=== PATIENT | female | born 1940 | race Asian ===

== ENCOUNTER 2017-04-01 04:55 | Inpatient (IN) | payer MEDICARE, OTHER ==
[2017-04-01] MEDS ORDERED: SOD CHLORIDE 0.9% 1,000 ML IV (05:05)
[2017-04-01 06:58] LABS: WHITE BLOOD COUNT 3.7 10^3/ul (4.8-10.8)
[2017-04-01 06:58] LABS: ABNORMAL IP MESSAGE 1; HEMATOCRIT 21.9 % (37.0-47.0); HEMOGLOBIN 7.4 g/dl (12.0-16.0); MEAN CORPUSCULAR HEMOGLOBIN 29.5 pg (29.0-33.0); MEAN CORPUSCULAR HGB CONC 33.8 g/dl (32.0-37.0); MEAN CORPUSCULAR VOLUME 87.3 fl (82.0-101.0); RED BLOOD COUNT 2.51 10^6/ul (4.20-5.40); RED CELL DISTRIBUTION WIDTH 13.8 % (11.5-14.5)
[2017-04-01 07:13] LABS: ALANINE AMINOTRANSFERASE 24 IU/L (13-69); ALBUMIN 2.8 g/dl (3.3-4.9); ALBUMIN/GLOBULIN RATIO 0.96; ALKALINE PHOSPHATASE 102 IU/L (42-121); ANION GAP 16 (8-16); ASPARTATE AMINO TRANSFERASE 28 IU/L (15-46); BLOOD UREA NITROGEN 39 mg/dl (7-20); CALCIUM 8.9 mg/dl (8.4-10.2); CARBON DIOXIDE 20 mmol/L (21-31); CHLORIDE 93 mmol/L (97-110); CREATININE 0.54 mg/dl (0.44-1.00); GLUCOSE 144 mg/dl (70-220); LIPASE 22 U/L (23-300); POTASSIUM 4.9 mmol/L (3.5-5.1); SODIUM 124 mmol/L (135-144); TOTAL PROTEIN 5.7 g/dl (6.1-8.1)
[2017-04-01 07:15] LABS: ADD MAN DIFF? YES; MEAN PLATELET VOLUME 11.3 fl (7.4-10.4); PLATELET COUNT 65 10^3/UL (140-415); POSITIVE DIFF @See below
[2017-04-01 07:31] LABS: INR 0.94; PARTIAL THROMBOPLASTIN TIME 21.4 Sec (25.0-35.0); PROTIME 12.7 Sec (11.9-14.9)
[2017-04-01 07:32] LABS: TROPONIN-I < 0.012 ng/ml (0.00-0.12)
[2017-04-01] MEDS: OCTREOTIDE 50 MCG in SOD CHLORIDE 0.9% 25 ML IVPB (09:01)
[2017-04-01] MEDS: PANTOPRAZOLE IV 80 MG in SOD CHLORIDE 0.9% 100 ML IVPB (09:02)
[2017-04-01] MEDS: ONDANSETRON INJ 8 MG in DEXTROSE 5% 50 ML IVPB (09:05)
[2017-04-01] MEDS: SODIUM CHLORIDE 0.9% 1L BAG IV* ×2 (09:05→18:18)
[2017-04-01] MEDS: OCTREOTIDE 500 MCG in SOD CHLORIDE 0.9% 49 ML IV (09:26)
[2017-04-01] MEDS: PANTOPRAZOLE IV 80 MG in SOD CHLORIDE 0.9% 100 ML IV ×2 (09:33→22:12)
[2017-04-01] MEDS ORDERED: ONDANSETRON 4 MG INJ IV (10:00)
[2017-04-01] MEDS ORDERED: ACETAMINOPHEN 325 MG TAB PO (10:00)
[2017-04-01 10:30] LABS: ANISOCYTOSIS 1+ (0-0); BAND NEUTROPHILS #M 1.4 10^3/ul (0.0-0.6); BAND NEUTROPHILS % (M) 40 % (0-4); BURR CELLS 1+ (0-0); EOSINOPHILS % (M) 12 % (0-7); LYMPHOCYTES #M 0.6 10^3/ul (0.8-2.9); LYMPHOCYTES % (M) 18 % (15-51); METAMYELOCYTES #M 0.1 10^3/ul (0.0-0.0); METAMYELOCYTES %M 4 % (0-0); MONOCYTES % (M) 1 % (0-11); PLATELET ESTIMATE DECREASED; POIKILOCYTOSIS 1+ (0-0); POLYCHROMASIA 3+ (0-0); SEGMENTED NEUTROPHILS (M) % 25 % (39-77); SMUDGE%M 3 % (0-0)
[2017-04-01] MEDS ORDERED: ACETAMINOPHEN 650 MG SUPP PR ×2 (16:23→16:52)
[2017-04-01] MEDS: DEXTROSE 5%-0.45% NACL 1,000 ML IV (16:33)
[2017-04-01 16:34] LABS: IRON < 10 ug/dl (35-150)
[2017-04-01] MEDS: FUROSEMIDE 20 MG INJ IV (16:34)
[2017-04-01 16:43] LABS: TOTAL IRON BINDING CAPACITY 236 ug/dl (241-421)
[2017-04-01] MEDS: ACETAMINOPHEN 650 MG SUPP PR ×2 (17:16→22:24)
[2017-04-01 19:13] LABS: LACTIC ACID 2.3 mmol/L (0.5-2.0)
[2017-04-01 19:28] LABS: TYPE AND SCREEN 1
[2017-04-01 21:32] LABS: LACTIC ACID 1.2 mmol/L (0.5-2.0)
[2017-04-01] MEDS: SOD CHLORIDE 0.9% 500 ML IV (22:24)
[2017-04-01] MEDS ORDERED: SOD CHLORIDE 0.9% 500 ML IV (22:30)
[2017-04-01] MEDS: CEFEPIME 2GM/50 ML (PMX) 50 ML IVPB (23:10)
[2017-04-01] MEDS: SOD CHLORIDE 0.9% 1,000 ML IV (23:25)
[2017-04-01 23:31] LABS: LACTIC ACID 1.6 mmol/L (0.5-2.0)
[2017-04-02] MEDS: VANCOMYCIN 1 GM (PMX) 250 ML IVPB (00:33)
[2017-04-02] MEDS: SOD CHLORIDE 0.9% 500 ML IV ×2 (02:06→02:09)
[2017-04-02 06:51] LABS: ABNORMAL IP MESSAGE 1; MEAN CORPUSCULAR HEMOGLOBIN 29.7 pg (29.0-33.0); MEAN CORPUSCULAR VOLUME 84.9 fl (82.0-101.0); PLATELET COUNT 226 10^3/UL (140-415); RED BLOOD COUNT 2.12 10^6/ul (4.20-5.40); RED CELL DISTRIBUTION WIDTH 15.8 % (11.5-14.5)
[2017-04-02 06:51] LABS: WHITE BLOOD COUNT 11.7 10^3/ul (4.8-10.8)
[2017-04-02 07:05] LABS: POSITIVE DIFF @See below
[2017-04-02 07:06] LABS: ADD MAN DIFF? YES; HEMOGLOBIN 6.3 g/dl (12.0-16.0)
[2017-04-02 07:14] LABS: ANION GAP 9 (8-16); BLOOD UREA NITROGEN 20 mg/dl (7-20); CALCIUM 7.5 mg/dl (8.4-10.2); CARBON DIOXIDE 20 mmol/L (21-31); CHLORIDE 110 mmol/L (97-110); CREATININE 0.52 mg/dl (0.44-1.00); GLUCOSE 76 mg/dl (70-220); MAGNESIUM 1.8 mg/dl (1.7-2.5); POTASSIUM 3.5 mmol/L (3.5-5.1); SODIUM 135 mmol/L (135-144)
[2017-04-02] MEDS: DEXTROSE 5%-0.45% NACL 1,000 ML IV ×2 (07:40→16:43)
[2017-04-02] MEDS: PANTOPRAZOLE IV 80 MG in SOD CHLORIDE 0.9% 100 ML IV ×4 (08:52→22:00)
[2017-04-02 11:33] LABS: ADD MAN DIFF? NO
[2017-04-02 11:35] LABS: WHITE BLOOD COUNT 11.6 10^3/ul (4.8-10.8)
[2017-04-02 11:35] LABS: ABNORMAL IP MESSAGE 1; BASOPHILS % 0.3 % (0.0-2.0); EOSINOPHILS # 0.5 10^3/ul (0.0-0.5); EOSINOPHILS % 4.2 % (0.0-7.0); HEMATOCRIT 22.4 % (37.0-47.0); HEMOGLOBIN 7.7 g/dl (12.0-16.0); LYMPHOCYTES # 0.5 10^3/ul (0.8-2.9); LYMPHOCYTES % 4.4 % (15.0-51.0); MEAN CORPUSCULAR HEMOGLOBIN 29.7 pg (29.0-33.0); MEAN CORPUSCULAR HGB CONC 34.4 g/dl (32.0-37.0); MEAN CORPUSCULAR VOLUME 86.5 fl (82.0-101.0); MEAN PLATELET VOLUME 8.9 fl (7.4-10.4); MONOCYTE # 0.2 10^3/ul (0.3-0.9); MONOCYTES % 1.3 % (0.0-11.0); NEUTROPHIL # 10.4 10^3/ul (1.6-7.5); NEUTROPHILS % 89.3 % (39.0-77.0); PLATELET COUNT 254 10^3/UL (140-415); RED BLOOD COUNT 2.59 10^6/ul (4.20-5.40)
[2017-04-02 12:43] LABS: ANISOCYTOSIS 1+ (0-0); BAND NEUTROPHILS #M 7.9 10^3/ul (0.0-0.6); BAND NEUTROPHILS % (M) 68 % (0-4); DIMORPHIC RBC 1+ (0-0); EOSINOPHILS % (M) 6 % (0-7); GIANT THROMBO% (M) 3 % (0-0); LYMPHOCYTES #M 0.4 10^3/ul (0.8-2.9); LYMPHOCYTES % (M) 4 % (15-51); METAMYELOCYTES #M 0.2 10^3/ul (0.0-0.0); METAMYELOCYTES %M 2 % (0-0); PLATELET ESTIMATE NORMAL; POIKILOCYTOSIS 1+ (0-0); POLYCHROMASIA 1+ (0-0); SEG NEUT #M 3.3 10^3/ul (1.7-7.5); SEGMENTED NEUTROPHILS (M) % 20 % (39-77); SMUDGE%M 3 % (0-0)
[2017-04-02] MEDS: ACETAMINOPHEN 650 MG SUPP PR (15:30)
[2017-04-02 17:40] LABS: WHITE BLOOD COUNT 8.2 10^3/ul (4.8-10.8)
[2017-04-02 17:40] LABS: ABNORMAL IP MESSAGE 1; HEMATOCRIT 23.4 % (37.0-47.0); HEMOGLOBIN 7.8 g/dl (12.0-16.0); MEAN CORPUSCULAR HEMOGLOBIN 28.9 pg (29.0-33.0); MEAN CORPUSCULAR HGB CONC 33.3 g/dl (32.0-37.0); MEAN CORPUSCULAR VOLUME 86.7 fl (82.0-101.0); MEAN PLATELET VOLUME 9.1 fl (7.4-10.4); PLATELET COUNT 264 10^3/UL (140-415); RED CELL DISTRIBUTION WIDTH 16.1 % (11.5-14.5)
[2017-04-02 17:54] LABS: ADD MAN DIFF? YES; POSITIVE DIFF @See below
[2017-04-02 18:25] LABS: ANISOCYTOSIS 1+ (0-0); BAND NEUTROPHILS #M 0.8 10^3/ul (0.0-0.6); BAND NEUTROPHILS % (M) 10 % (0-4); ERYTHROBLAST% (NRBC) (M) 1 % (0-0); LYMPHOCYTES #M 0.4 10^3/ul (0.8-2.9); LYMPHOCYTES % (M) 5 % (15-51); MICROCYTOSIS 1+ (0-0); MONOCYTE #M 0.8 10^3/ul (0.3-0.9); MONOCYTES % (M) 10 % (0-11); PLATELET MORPHOLOGY COMMENT @See below; POIKILOCYTOSIS 2+ (0-0); SEG NEUT #M 6.2 10^3/ul (1.7-7.5); SEGMENTED NEUTROPHILS (M) % 75 % (39-77); SMUDGE%M 3 % (0-0)
[2017-04-02 23:40] LABS: ABNORMAL IP MESSAGE 1; HEMATOCRIT 18.9 % (37.0-47.0); MEAN CORPUSCULAR HEMOGLOBIN 29.5 pg (29.0-33.0); MEAN CORPUSCULAR HGB CONC 34.4 g/dl (32.0-37.0); MEAN CORPUSCULAR VOLUME 85.9 fl (82.0-101.0); MEAN PLATELET VOLUME 8.7 fl (7.4-10.4); PLATELET COUNT 219 10^3/UL (140-415); RED CELL DISTRIBUTION WIDTH 16.2 % (11.5-14.5)
[2017-04-02 23:40] LABS: WHITE BLOOD COUNT 10.1 10^3/ul (4.8-10.8)
[2017-04-02 23:43] LABS: POSITIVE DIFF @See below
[2017-04-02 23:45] LABS: ADD MAN DIFF? YES; HEMOGLOBIN 6.5 g/dl (12.0-16.0)
[2017-04-02 23:46] LABS: PATH REVIEW? YES
[2017-04-03] MEDS: DEXTROSE 5%-0.45% NACL 1,000 ML IV ×2 (00:20→12:21)
[2017-04-03 00:43] LABS: ADD MAN DIFF? NO
[2017-04-03 00:45] LABS: WHITE BLOOD COUNT 11.7 10^3/ul (4.8-10.8)
[2017-04-03 00:45] LABS: ABNORMAL IP MESSAGE 1; BASOPHILS % 0.3 % (0.0-2.0); EOSINOPHILS % 0.3 % (0.0-7.0); HEMATOCRIT 21.1 % (37.0-47.0); LYMPHOCYTES # 0.5 10^3/ul (0.8-2.9); LYMPHOCYTES % 4.5 % (15.0-51.0); MEAN CORPUSCULAR HEMOGLOBIN 29.4 pg (29.0-33.0); MEAN CORPUSCULAR HGB CONC 33.2 g/dl (32.0-37.0); MEAN CORPUSCULAR VOLUME 88.7 fl (82.0-101.0); MONOCYTE # 0.2 10^3/ul (0.3-0.9); MONOCYTES % 1.5 % (0.0-11.0); NEUTROPHIL # 10.9 10^3/ul (1.6-7.5); PLATELET COUNT 236 10^3/UL (140-415); RED BLOOD COUNT 2.38 10^6/ul (4.20-5.40); RED CELL DISTRIBUTION WIDTH 16.4 % (11.5-14.5)
[2017-04-03 00:56] LABS: NEUTROPHILS % 92.8 % (39.0-77.0); POSITIVE DIFF @See below
[2017-04-03 01:10] LABS: ANISOCYTOSIS 2+ (0-0); BAND NEUTROPHILS #M 2.7 10^3/ul (0.0-0.6); BAND NEUTROPHILS % (M) 27 % (0-4); EOSINOPHILS % (M) 1 % (0-7); GIANT THROMBO% (M) 1 % (0-0); LYMPHOCYTES #M 0.4 10^3/ul (0.8-2.9); LYMPHOCYTES % (M) 4 % (15-51); MICROCYTOSIS 2+ (0-0); MONOCYTE #M 0.5 10^3/ul (0.3-0.9); MONOCYTES % (M) 5 % (0-11); PLASMA CELLS #M 0.1 10^3/ul (0.0-0.0); PLASMAC%(M) 1 % (0); PLATELET ESTIMATE NORMAL; POIKILOCYTOSIS 1+ (0-0); POLYCHROMASIA 3+ (0-0); SEG NEUT #M 6.5 10^3/ul (1.7-7.5); SEGMENTED NEUTROPHILS (M) % 62 % (39-77); SMUDGE%M 1 % (0-0)
[2017-04-03] MEDS: ACETAMINOPHEN 650 MG SUPP PR (02:00)
[2017-04-03] MEDS: SOD CHLORIDE 0.9% 500 ML IV ×2 (03:45→04:44)
[2017-04-03] MEDS: PANTOPRAZOLE IV 80 MG in SOD CHLORIDE 0.9% 100 ML IV ×2 (06:12→18:31)
[2017-04-03 06:31] LABS: ADD MAN DIFF? NO
[2017-04-03 06:37] LABS: ABNORMAL IP MESSAGE 1; BASOPHILS % 0.2 % (0.0-2.0); EOSINOPHILS # 0.1 10^3/ul (0.0-0.5); EOSINOPHILS % 0.7 % (0.0-7.0); HEMATOCRIT 21.1 % (37.0-47.0); LYMPHOCYTES # 0.6 10^3/ul (0.8-2.9); LYMPHOCYTES % 4.9 % (15.0-51.0); MEAN CORPUSCULAR HEMOGLOBIN 29.2 pg (29.0-33.0); MEAN CORPUSCULAR HGB CONC 32.7 g/dl (32.0-37.0); MEAN CORPUSCULAR VOLUME 89.4 fl (82.0-101.0); MEAN PLATELET VOLUME 9.2 fl (7.4-10.4); MONOCYTE # 0.4 10^3/ul (0.3-0.9); MONOCYTES % 2.9 % (0.0-11.0); NEUTROPHIL # 11.2 10^3/ul (1.6-7.5); PLATELET COUNT 213 10^3/UL (140-415); RED BLOOD COUNT 2.36 10^6/ul (4.20-5.40); RED CELL DISTRIBUTION WIDTH 16.5 % (11.5-14.5)
[2017-04-03 06:37] LABS: WHITE BLOOD COUNT 12.4 10^3/ul (4.8-10.8)
[2017-04-03 06:48] LABS: NEUTROPHILS % 90.4 % (39.0-77.0); POSITIVE DIFF @See below
[2017-04-03 06:51] LABS: HEMOGLOBIN 6.9 g/dl (12.0-16.0)
[2017-04-03 07:00] LABS: PHOSPHORUS 2.1 mg/dl (2.5-4.9)
[2017-04-03 07:00] LABS: MAGNESIUM 1.9 mg/dl (1.7-2.5)
[2017-04-03 07:04] LABS: IRON < 10 ug/dl (35-150)
[2017-04-03 07:24] LABS: ANION GAP 10 (8-16); BLOOD UREA NITROGEN 15 mg/dl (7-20); CALCIUM 7.4 mg/dl (8.4-10.2); CARBON DIOXIDE 17 mmol/L (21-31); CHLORIDE 113 mmol/L (97-110); CREATININE 0.57 mg/dl (0.44-1.00); GLUCOSE 84 mg/dl (70-220); SODIUM 137 mmol/L (135-144)
[2017-04-03 07:26] LABS: TOTAL IRON BINDING CAPACITY 172 ug/dl (241-421)
[2017-04-03 07:29] LABS: POTASSIUM 2.9 mmol/L (3.5-5.1)
[2017-04-03 09:09] LABS: IMMEDIATE SPIN CROSSMATCH 1 3
[2017-04-03 09:26] LABS: ANISOCYTOSIS 2+ (0-0); BAND NEUTROPHILS #M 6.4 10^3/ul (0.0-0.6); BAND NEUTROPHILS % (M) 52 % (0-4); EOSINOPHILS % (M) 1 % (0-7); GIANT THROMBO% (M) 1 % (0-0); LYMPHOCYTES #M 0.3 10^3/ul (0.8-2.9); LYMPHOCYTES % (M) 3 % (15-51); MICROCYTOSIS 1+ (0-0); MONOCYTE #M 0.3 10^3/ul (0.3-0.9); MONOCYTES % (M) 3 % (0-11); PLATELET ESTIMATE NORMAL; POIKILOCYTOSIS 3+ (0-0); SEG NEUT #M 5.9 10^3/ul (1.7-7.5); SEGMENTED NEUTROPHILS (M) % 41 % (39-77); SMUDGE%M 6 % (0-0)
[2017-04-03] MEDS: POTASSIUM PHOSPHATE 20 MEQ in SOD CHLORIDE 0.9% 250 ML IVPB (12:21)
[2017-04-04 03:37] LABS: ADD MAN DIFF? NO
[2017-04-04 04:01] LABS: ANION GAP 11 (8-16); BLOOD UREA NITROGEN 14 mg/dl (7-20); CALCIUM 7.9 mg/dl (8.4-10.2); CARBON DIOXIDE 18 mmol/L (21-31); CHLORIDE 113 mmol/L (97-110); CREATININE 0.59 mg/dl (0.44-1.00); GLUCOSE 117 mg/dl (70-220); SODIUM 139 mmol/L (135-144)
[2017-04-04 04:07] LABS: WHITE BLOOD COUNT 13.4 10^3/ul (4.8-10.8)
[2017-04-04 04:07] LABS: BASOPHILS % 0.1 % (0.0-2.0); EOSINOPHILS # 0.1 10^3/ul (0.0-0.5); EOSINOPHILS % 0.7 % (0.0-7.0); HEMATOCRIT 26.4 % (37.0-47.0); LYMPHOCYTES # 0.6 10^3/ul (0.8-2.9); LYMPHOCYTES % 4.8 % (15.0-51.0); MEAN CORPUSCULAR HEMOGLOBIN 29.4 pg (29.0-33.0); MEAN CORPUSCULAR HGB CONC 34.1 g/dl (32.0-37.0); MEAN CORPUSCULAR VOLUME 86.3 fl (82.0-101.0); MEAN PLATELET VOLUME 9.4 fl (7.4-10.4); MONOCYTE # 0.3 10^3/ul (0.3-0.9); MONOCYTES % 2.2 % (0.0-11.0); NEUTROPHIL # 12.3 10^3/ul (1.6-7.5); PLATELET COUNT 202 10^3/UL (140-415); RED BLOOD COUNT 3.06 10^6/ul (4.20-5.40); RED CELL DISTRIBUTION WIDTH 15.3 % (11.5-14.5)
[2017-04-04 04:10] LABS: NEUTROPHILS % 91.3 % (39.0-77.0); POSITIVE DIFF @See below
[2017-04-04] MEDS: PANTOPRAZOLE IV 80 MG in SOD CHLORIDE 0.9% 100 ML IV ×3 (05:29→23:07)
[2017-04-04] MEDS: POTASSIUM CHLORIDE 50 ML IVPB ×2 (05:30→07:54)
[2017-04-04] MEDS ORDERED: POTASSIUM CHLORIDE 50 ML IVPB (09:00)
[2017-04-04] MEDS: SOD CHLORIDE 0.9% 500 ML IV (09:00)
[2017-04-04] MEDS: DEXTROSE 5%-0.45% NACL 1,000 ML IV (09:11)
[2017-04-04] MEDS: PIPER-TAZO 3.375 GM IV (PMX) 100 ML IVPB ×3 (09:16→22:12)
[2017-04-04 17:07] LABS: PATH REVIEW CH
[2017-04-05] MEDS: LORAZEPAM 2 MG INJ IV (03:10)
[2017-04-05] MEDS: DEXTROSE 5%-0.45% NACL 1,000 ML IV (03:11)
[2017-04-05] MEDS: PIPER-TAZO 3.375 GM IV (PMX) 100 ML IVPB (05:51)
[2017-04-05 06:21] LABS: ABNORMAL IP MESSAGE 1; HEMATOCRIT 28.6 % (37.0-47.0); HEMOGLOBIN 9.5 g/dl (12.0-16.0); MEAN CORPUSCULAR HEMOGLOBIN 29.6 pg (29.0-33.0); MEAN CORPUSCULAR HGB CONC 33.2 g/dl (32.0-37.0); MEAN CORPUSCULAR VOLUME 89.1 fl (82.0-101.0); MEAN PLATELET VOLUME 9.5 fl (7.4-10.4); NUCLEATED RED BLOOD CELLS% 0.2 /100WBC (0.0-0.0); PLATELET COUNT 213 10^3/UL (140-415); RED BLOOD COUNT 3.21 10^6/ul (4.20-5.40); RED CELL DISTRIBUTION WIDTH 15.8 % (11.5-14.5)
[2017-04-05 06:21] LABS: WHITE BLOOD COUNT 19.9 10^3/ul (4.8-10.8)
[2017-04-05] MEDS: SOD CHLORIDE 0.9% 250 ML IV (06:34)
[2017-04-05] MEDS: ALBUMIN HUMAN 25% 50 ML IV (06:34)
[2017-04-05 06:42] LABS: ADD MAN DIFF? YES; POSITIVE DIFF @See below
[2017-04-05 06:53] LABS: ANION GAP 11 (8-16); BLOOD UREA NITROGEN 13 mg/dl (7-20); CARBON DIOXIDE 16 mmol/L (21-31); CHLORIDE 115 mmol/L (97-110); CREATININE 0.62 mg/dl (0.44-1.00); GLUCOSE 186 mg/dl (70-220); MAGNESIUM 1.8 mg/dl (1.7-2.5); POTASSIUM 3.9 mmol/L (3.5-5.1); SODIUM 138 mmol/L (135-144)
[2017-04-05 09:26] LABS: ANISOCYTOSIS 2+ (0-0); BAND NEUTROPHILS #M 1.9 10^3/ul (0.0-0.6); BAND NEUTROPHILS % (M) 10 % (0-4); BASOPHIL #M 0.1 10^3/ul (0.0-0.0); BASOPHILS % (M) 1 % (0-2); BURR CELLS 3+ (0-0); ERYTHROBLAST% (NRBC) (M) 2 % (0-0); MICROCYTOSIS 1+ (0-0); PLATELET ESTIMATE NORMAL; POIKILOCYTOSIS 3+ (0-0); POLYCHROMASIA 3+ (0-0); SEG NEUT #M 18.1 10^3/ul (1.7-7.5); SEGMENTED NEUTROPHILS (M) % 89 % (39-77)
== END 2017-04-05 08:42 | disposition expired | DRG 377 ==
LOC: ICU 04-03 06:56 → E/R 04:55 → PP2 09:37
PROC: 05H533Z Insertion of Infusion Device into Right Subclavian Vein, Percutaneous Approach (ICD-10-PCS; principal; 2017-04-01)
PROC: 30243R1 Transfusion of Nonautologous Platelets into Central Vein, Percutaneous Approach (ICD-10-PCS; 2017-04-01)
PROC: 30243N1 Transfusion of Nonautologous Red Blood Cells into Central Vein, Percutaneous Approach (ICD-10-PCS; 2017-04-01)
DX: K92.2 Gastrointestinal hemorrhage, unspecified (principal); G93.49 Other encephalopathy; J96.01 Acute respiratory failure with hypoxia; R57.1 Hypovolemic shock; E43 Unspecified severe protein-calorie malnutrition; D61.818 Other pancytopenia; E87.0 Hyperosmolality and hypernatremia; E87.2 Acidosis; R13.10 Dysphagia, unspecified; L12.0 Bullous pemphigoid; D62 Acute posthemorrhagic anemia; Z68.1 Body mass index [BMI] 19.9 or less, adult; D50.0 Iron deficiency anemia secondary to blood loss (chronic); K92.1 Melena; E86.0 Dehydration; E83.39 Other disorders of phosphorus metabolism; E87.6 Hypokalemia; Z93.1 Gastrostomy status; I69.398 Other sequelae of cerebral infarction; I69.391 Dysphagia following cerebral infarction; Z66 Do not resuscitate
CPT/HCPCS: 36430; 71045; 80048; 80053; 82728; 83540; 83605; 83690; 83735; 84100; 84484; 85025; 85610; 85730; 86850; 86900; 86901; 86920; 87040; 87086; 93005; 94660; 96365; 96368; 96375; 96376; 99291-25; J1940